=== PATIENT | male | born 1990 | race Caucasian/White ===

== ENCOUNTER 2021-12-03 10:52 | Emergency (ER) | payer OTHER ==
[2021-12-03] MEDS ORDERED: Sodium Chloride 0.9% 10 ML Syringe FLUSH PRN (11:15)
[2021-12-03 12:25] LABS: ESTIMATED GFR > 60 mL/min (>60)
== END 2021-12-03 13:17 | disposition home or self-care (01) ==
LOC: JD.ED 10:52
DX: R07.89 Other chest pain (principal); E66.9 Obesity, unspecified; Z68.34 Body mass index [BMI] 34.0-34.9, adult; Z86.16 Personal history of COVID-19; Z88.0 Allergy status to penicillin; Z88.1 Allergy status to other antibiotic agents
CPT/HCPCS: 36415; 71045; 80053; 83735; 83880; 84484; 85025; 85610; 85730; 93005; 99285; J3490; 93010; 99283

== ENCOUNTER 2023-12-21 12:22 | Emergency (ER) | payer OTHER ==
[2023-12-21] MEDS: Acetaminophen/oxyCODONE 325-5 MG Tab PO ONE (13:31)
== END 2023-12-21 13:35 | disposition home or self-care (01) ==
LOC: JD.ED 12:22
DX: R51.9 Headache, unspecified (principal); R50.9 Fever, unspecified; B34.9 Viral infection, unspecified; E66.9 Obesity, unspecified; Z88.0 Allergy status to penicillin; Z88.1 Allergy status to other antibiotic agents; Z79.899 Other long term (current) drug therapy; Z86.16 Personal history of COVID-19; Z68.32 Body mass index [BMI] 32.0-32.9, adult
CPT/HCPCS: 99283; A9270